=== PATIENT | female | born 1960 | race Caucasian/White ===

== ENCOUNTER 2018-08-20 16:18 | Emergency (ER) | payer BC, OTHER, SELFPAY ==
[2018-08-20 16:19] VITALS: BP 184/82; PULSE 84; RESP 14; TEMP 36.8; O2SAT 97; BMI 46.7
[2018-08-20 16:29] VITALS: BP 177/83; PULSE 85; RESP 12; O2SAT 96
[2018-08-20 16:31] LABS: Bedside Glucose 103 mg/dL (70-110)
--- NOTE | 2018-08-20 16:42 | CT_ITS ---
STUDY: CT BRAIN WITHOUT CONTRAST REASON FOR EXAM: Female, 57 years old. Double vision RADIATION DOSAGE (If Supplied By Facility): CTDIvol = ( 44.99 ) mGy, DLP = ( 812.98 ) mGycm TECHNIQUE: Transaxial CT imaging of the brain was performed without administration of intravenous contrast material. Individualized dose optimization techniques were used for this CT. COMPARISON: No relevant priors. FINDINGS: Normal soft tissue structures. Normal calvarium. Normal size ventricles and extra-axial spaces for the patient's age. Minor periventricular white matter ischemic changes. Normal basal ganglia and thalami. Normal brainstem. Normal cerebellum. There is no intracranial hemorrhage. There are no findings of an acute ischemic infarction. Normal visualized paranasal sinuses. CT/Brain/Head without Contrast IMPRESSION: Minor periventricular white matter ischemic changes. No acute bleed. If concern for acute infarct MRI recommended Electronically Signed: Dwight Evans MD at 17:31 EDT , Service support ,
--- NOTE | 2018-08-20 16:43 | EKG12_ITS ---
Test Reason : NEURO S/SX Blood Pressure : / mmHG Vent. Rate : 078 BPM Atrial Rate : 078 BPM P-R Int : 140 ms QRS Dur : 074 ms QT Int : 366 ms P-R-T Axes : 069 069 052 degrees QTc Int : 417 ms Normal sinus rhythm Nonspecific T wave abnormality Abnormal ECG Confirmed by JARETT LORD, SABIHA ([id number]), editorial writer MALINA KNUTSON ([id number]) on 08/22/2018 11:36:50 AM Referred By: GEEN Confirmed By:SABIHA DENSON MD
--- NOTE | 2018-08-20 16:44 | ED.VIS.GEN ---
History of Present Illness Chief Complaint: Vision Prob Detail of Chief Complaint: Intermittent double vision Informant: Patient Onset: Today Current Severity: - - Gone Maximum Severity: Moderate Narrative: Patient reports waking up at 630 this morning and noting double vision which she described as [id number]. Symptoms lasted approximately 2 or 3 minutes and then resolved. Throughout the day patient has had 3 other episodes of similar symptoms, lasting only a few seconds at a time. Patient was seen by Dr. Briseno with ophthalmology. He sent the patient to the ER for TIA evaluation noting that her eye exam was normal. Patient does have elevated blood pressure today which is not normal for her. She denies headache. She states she has had some mild pain around her right eye for the past 5 days which she attributed to eye strain from working on a computer. She does state that she had a PE a couple years ago after being on control pills. She is no longer on anticoagulants. She states that a couple years ago she also woke up one morning with numbness to the entire left side of her body. There was no weakness associated. She went to a chiropractor. She states she continues to have some intermittent numbness to her left hand and thumb area, but the remainder of her symptoms completely resolved. - Past Medical History (1) Pulmonary embolism Status: Acute Past Medical History - Allergies and Home Meds Allergies/Adverse Reactions: Allergies No Known Allergies Allergy (Verified 08/20/18 16:19) Primary Care Physician: Padmaja Siddiqi DO [STAFF PHYSICIAN] - Prior records reviewed: Yes Past Medical History: - - Reviewed Lives: Spouse/ Significant Other Smoking Status: Never smoker Review of Systems General: Denies: Chills, Fever Eyes: Reports: Diplopia ENT: Denies: Bilateral ear pain, Left ear pain Cardiovascular: Denies: Chest pain, Palpitations, Heart racing Respiratory: Denies: Dyspnea, Cough Gastrointestinal: Denies: Abdominal pain, Nausea, Vomiting Musculoskeletal: Denies: Myalgias Neurological: Denies: Headache, Weakness, Parasthesia Physical Exam Vital Signs/Narrative: Vital Signs Temp Pulse Resp BP Pulse Ox 08/20/18 16:29 85 12 177/83 H 96 08/20/18 16:19 98.3 F 84 14 184/82 H 97 Inital Vital Signs reviewed: Yes General: Well nourished, Well developed Eyes: EOMI, - - Eyes currently dilated secondary to her recent eye exam. ENT: Moist mucous membranes Cardiovascular: Regular rate, Regular rhythm Respiratory: No distress, CTA bilaterally Abdomen: Soft, Nontender Skin: Normal color Neurological: Alert, Oriented x3, - - NIH equals 0 Diagnostic/Tx/Re-eval Impressions Brain CT 08/20/18 16:42 IMPRESSION: Minor periventricular white matter ischemic changes. No acute bleed. If concern for acute infarct MRI recommended Electronically Signed: Dwight Evans MD at 17:31 EDT , Service support , Head/Neck CTA 08/20/18 18:13 IMPRESSION: Mild atherosclerotic disease. No hemodynamically significant stenosis or occlusive thrombus Electronically Signed: Dwight Evans MD at 19:15 EDT , Service support , 08/20/18 16:42 Brain/Head without Contrast [CT] Stat 08/20/18 18:13 CTA Head AND Neck W/ Contrast [CT] Stat Laboratory Results 08/20/18 08/20/18 08/20/18 16:26 17:00 17:00 WBC 6.2 RBC 4.90 Hgb 14.6 Hct 43.4 MCV 88.6 MCH 29.8 MCHC 33.6 RDW 13.5 RDW Differential 43.6 Plt Count 264 MPV 10.4 Immature Gran % (Auto) 0.300 Neut % (Auto) 55.4 Lymph % (Auto) 33.4 [place] % (Auto) 8.3 Eos % (Auto) 2.1 Baso % (Auto) 0.5 Absolute Neuts (auto) 3.4 Absolute Lymphs (auto) 2.06 Total Counted Not Reportable Sodium 139 Potassium 4.4 Chloride 106 Carbon Dioxide 26.0 Anion Gap 7 BUN 14 Creatinine 0.80 Estim Creat Clear Calc 67.00 Est GFR (MDRD) Af Amer 94 Est GFR (MDRD) Non-Af 78 BUN/Creatinine Ratio 17.4 Glucose 101 Calcium 8.9 Troponin I < 0.015 POC Glucose 103 - EKG Initial EKG Interpretation: Sinus Rhythm, - - Normal sinus rhythm at 78 bpm with no acute ST change. Nonspecific T wave flattening is noted. - Medical Decision Making Patient presents with intermittent double vision. CT head and CTA head and neck are unremarkable. Patient refused admission to get MRI. I spoke with Dr. Garcia, on-call for the patient's primary care physician. They will try to arrange close follow-up for the patient. She was instructed to return for any worsening symptoms or concerns. ED Disposition - Plan for ED Patient: Disposition: Home or Assisted Living Diagnosis: Double vision Instructions: Diploplia Referrals: Dwight Guevara MD [Primary Care Provider] - As soon as possible
[2018-08-20] MEDS: 0.9% Normal Saline 1,000 ML 15 ML IV (16:56)
[2018-08-20 17:19] LABS: Absolute Lymphocyte Count 2.06 X10^3/ul (0.83-4.51); Absolute Neutrophil Count 3.4 X10^3/uL (2.0-7.7); Basophil# 0.03 X10^3/uL; Basophil% 0.5 % (0-1); Eosinophil# 0.13 X10^3/uL; Eosinophils% 2.1 % (0-5); Hematocrit 43.4 % (37-47); Hemoglobin 14.6 g/dl (12.0-15.0); Lymphocyte # 2.06 X10^3/ul (4.0); Lymphocyte % 33.4 % (19-41); Mean Corp Hgb Conc 33.6 g/gl (32-36); Mean Corpuscular Hgb 29.8 pg (27.0-32.0); Mean Corpuscular Volume 88.6 fL (81-99); Mean Platelet Vol. 10.4 fl (6.2-12.0); Monocyte# 0.51 X10^3/uL; Monocyte% 8.3 % (0-10); Neutrophil # 3.41 X10^3/uL (2.7-7.7); Neutrophil % 55.4 % (47-70); Platelet Count 264 K/mm3 (150-450); RBC Distribution Width CV 13.5 % (11.6-14.6); RBC Distribution Width SD 43.6 fl (35.1-43.9); White Blood Count 6.2 K/mm3 (4.4-11.0)
[2018-08-20 17:32] LABS: POSITIVE COUNT NO; POSITIVE DIFFERENTIAL NO; POSITIVE MORPHOLOGY NO
[2018-08-20 17:44] LABS: Anion Gap 7 (5-15); BUN 14 mg/dL (7-18); BUN/Creat Ratio 17.4 RATIO (10-20); Calcium,Total 8.9 mg/dL (8.5-10.1); Chloride 106 mmol/L (98-107); EST Glomerular Filtration Rate 78 mL/min (>60); Est Glom Filt Rate - Afr Amer 94 mL/min (>60); Glucose 101 mg/dL (74-106); Potassium 4.4 mmol/L (3.5-5.1); Sodium Level 139 mmol/L (136-145)
[2018-08-20 17:52] VITALS: BP 152/75; PULSE 70; RESP 16; O2SAT 96
--- NOTE | 2018-08-20 18:13 | CT_ITS ---
STUDY: CTA HEAD AND NECK WITH CONTRAST REASON FOR EXAM: Female, 57 years old. Intermittent double vision RADIATION DOSAGE (If Supplied By Facility): CTDIvol = ( 13.09 ) mGy, DLP = ( 722.36 ) mGycm TECHNIQUE: CT angiography was performed with a multi-detector CT scanner. Data acquisition was obtained from the skull base through the vertex following intravenous administration of 100 IV Isovue 370. MIP images were reconstructed from the axial data set. Post-processing of the angiographic images was performed, with multiplanar reformation and 3D reconstruction. Individualized dose optimization techniques were used for this CT. COMPARISON: No relevant priors. FINDINGS: Normal bilateral petrous carotid arteries. Normal right cavernous carotid artery with a normal supraclinoid bifurcation. Minor calcific plaquing of the left cavernous carotid artery with a normal supraclinoid bifurcation. Normal right A1 segments of the anterior cerebral artery. Normal left A1 segments of the anterior cerebral artery. Normal intact anterior communicating artery (ACOM). Normal bilateral A2 segments of the anterior cerebral arteries. Normal right M1 and M2 segments of the middle cerebral arteries, with a normal M1 bifurcation. Normal left M1 and M2 segments of the middle cerebral arteries, with a normal M1 bifurcation. Normal right posterior communicating artery (PCOM). Normal left posterior communicating artery (PCOM). Normal right vertebral. Mildly narrowed distal left vertebral Normal basilar artery with a normal basilar bifurcation. The visualized bilateral superior cerebellar (SCA) arteries are normal. Normal bilateral P1, P2 and visualized P3 segments of the posterior cerebral arteries. There is no demonstrated aneurysm of the [facility] [place]. There is no demonstrated abnormality of the visualized brain. AORTIC ARCH: Normal visualized aortic arch. Normal origins of the brachiocephalic, left common carotid, and left subclavian arteries. RIGHT CAROTID ARTERIES: Normal right common carotid artery (CCA). Normal right common carotid bulb. Normal origin of the right internal carotid (ICA) artery without a hemodynamically significant stenosis. Normal visualized cervical portion of the right internal carotid artery. Normal origin of the right external carotid artery (ECA). LEFT CAROTID ARTERIES: Normal left common carotid artery (CCA). Minor calcific plaquing of the left common carotid bulb. Normal origin of the left internal carotid (ICA) artery without a hemodynamically significant stenosis. Normal visualized cervical portion of the left internal carotid artery. Normal origin of the left external carotid artery (ECA). VERTEBRAL ARTERIES: Normal right vertebral. Mildly narrowed distal left vertebral CT/CTA Head AND Neck W/ Contrast IMPRESSION: Mild atherosclerotic disease. No hemodynamically significant stenosis or occlusive thrombus Electronically Signed: Dwight Evans MD at 19:15 EDT , Service support ,
[2018-08-20 19:21] VITALS: BP 150/79; PULSE 71; RESP 16; O2SAT 96
[2018-08-20 20:41] VITALS: BP 146/78; PULSE 71; RESP 18; O2SAT 98
== END 2018-08-20 20:43 | disposition home or self-care (01) ==
PROVIDERS: Emergency Provider Emergency Medicine; Family Provider Family Medicine; PCP Family Medicine
DX: H53.2 Diplopia (principal); R20.0 Anesthesia of skin; Z86.711 Personal history of pulmonary embolism
CPT/HCPCS: 70450; 70496; 70498; 80048; 82962; 84484; 85025; 93005; 96360; 96361; 99285; J7030; Q9967; A4216

== ENCOUNTER 2020-01-09 15:00 | Outpatient (RCR) | payer BC, SELFPAY ==
--- NOTE | 2019-10-29 11:35 | HP.PTEVAL ---
Patient's Visit Information KAELA QUINTANA is a 59 year old F referred to Physical Therapy by TERRANCE PHELPS with a diagnosis of ANKLE FRACTURE. Date of Evaluation: 10/28/19 Physical Therapist: Branden Alexis, PT, Cert MDT, OCS - Visit Plan Frequency: 2x /Week Duration: 10weeks Plan: S/P ORIF LEFT ANKLE SEPTEMBER 05 NWB LLE WITH BOOT,USES KNEELING WALKER. STAYS IN BED/RECLINER,NON-AMBULATORY. PATIENT IS WBAT WITH BOOT LLE AND OKAY TO REMOVE ROM. 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 PT INTERVENTIONS ROM ANKLE ,FLEXABLITY CALF,STRENGTHENING HIP/KNEE ,VASO FOR EDEMA,START GAIT TRAINING ll BARS - Subjective This 59 y/o female presents to physical therapy with closed bimlleolar ankle fracture. Patient fractured ankle slipped on step on September 03 ER at [place] did Reduction then d/c to home with fww. Patient then seen September [address] Phelps at [facility] at [place] .Patient underwent s/p ORIF on September 05 Patient in splint for 2weeks ,September place in cast but had to remove due to swelling and placed in Boot September 30 .Patient ws NWB LLE kneeling walker made. Patient has kneeling walker downstairs and fww. Patient has elaveted toilet seat and bed side commode.Recently seen DR rhina Krue[place] and gonzalo for WBAT with boot and remove boot for ROM. Home is split level 2 steps entrance and 2 nd floor 7 steps. C/O parathesia foot .Patient removed boot when sleeping or resting. Patient tub seat over hang but spouse helps with ADL' and bathing. Spouse does all cooking and cleaning.Patient stays in bed or recliner. Patient condtion affects inablity to walk,unable to do ADL'S and job demnads. Patient condition affects QOL.Patient seen Oct 21 did X-RAYS showed healing but not total.Patient is not ambulating at home. SOCIAL: . 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 SKIN: crusty inscion ,scapy. PALPATION very tender too touch planater metetarsels. EDEMA: 25 cm metetarsels,trimaelaor joint line 64>3 cm2. AROM: dorsiflexion 40 degrees from 0 ,planterflexion 60 degrees,inversion 5 degrees ,eversion 0 degrees. MMT: ankle dorsiflexion 2+/5,platerflexion 2/5,eversion/inversion 2+/5 left ankle. GAIT: stood walker walker took one hop x1 in ll bars with mod assist wit PWB LLE with boot has difficulty with WB. TRANSFERS: sit-stand with mod assist ,pivot transfer poor technique with min assist - Goals Goal 1:: Patient to be I with HEP Goal Time Frame: 8-12 Weeks Goal 2:: Patient be I with all transfers Goal Time Frame: 4-6 Weeks Goal 3:: Patient to ambulate with least restrictive device with improve gait pattern with good - balance. Goal Time Frame: 8-12 Weeks Goal 4:: Patient incsrease dorsiflexion by 10 degrees,and 5 degrees inversion/eversion /planterflexion or > to improve gait. Goal Time Frame: 8-12 Weeks Goal 5:: Patient to increase strength left ankle stabilizers 4-/5 and G-S by 3+/5 to improve gait Goal Time Frame: 8-12 Weeks Goal 6:: Patient to improve LFES score by 10 points or > to improve function. Goal Time Frame: 8-12 Weeks - Rehabilitation Potential Physical Therapy Diagnosis: This patient s/p ORIF left ankle with pain ,edema ankle /foot,poor ROM ,tight calf,decrease,inability gait ,decrease transfers and balance impairs ADL's and function thus benifit from skilled PT. Rehabilitation Potential: Fair - Anticipated Interventions Patient/Client Instruction: Educate patient on: Condition For the Purpose of:: To decrease pain, To decrease swelling/inflammation, To increase ROM, To improve nutrient delivery to tissue, To increase oxygenation perfusion, To increase tolerance to activity/condition/position, To improve performance and independence with ADL's, To improve ability of physical actions for home/community/work/leisure, To improve gait and locomotor functions, To improve health of tissue, To decrease soft tissue restriction, To increase flexibility/ROM, To improve endurance, To improve safety with gait, To assume or resume ADL's Therapeutic Exercise to Include: Strength training, Endurance training, Balance training, Flexibilty training, Gait and locomotor training, Passive ROM, Active ROM Comment: STRENGTHENIG HIP/KNEE,ROM ANKLE PROGRESS STRENGTHENING PER MD For the Purpose of:: To decrease pain, To increase ROM, To improve nutrient delivery to tissue, To increase oxygenation perfusion, To improve muscle performance and motor function, To improve ability to perform ADL's, To increase tolerance to activity/condition/position, To improve performance and independence with ADL's, To improve ability of physical actions for home/community/work/leisure, To improve gait and locomotor functions, To improve health of tissue, To decrease soft tissue restriction, To increase flexibility/ROM, To improve balance, To improve safety with gait, To assume or resume ADL's, To improve ability to perform tasks related to life management TENS: Yes IF ES: Yes Cryotherapy (ice pack, ice massage): Yes Vasopneumatic device: Yes For the Purpose of:: To decrease pain, To decrease swelling/inflammation, To increase ROM, To improve nutrient delivery to tissue, To increase oxygenation perfusion, To decrease soft tissue restriction, To increase flexibility/ROM Thank you for the opportunity to evaluate your patient. For Medicare and Medicare HMO plans, please review the plan of care and approve it. It will need to be FAXED BACK to us at [phone] for Medicare purposes. For Medicare only, by signing this I certify the plan of care. Please let me know if there are questions or concerns regarding this plan of care. Physician Signature: Date:
--- NOTE | 2020-01-09 15:58 | HP.PTDCSUM ---
It has been my pleasure to treat KAELA QUINTANA referred by TERRANCE PHELPS, with the diagnosis of ANKLE FRACTURE for a total of 20 visit(s). Discharge Date: 01/09/20 Please see the following information for a summary of their discharge status. Subjective: [place] pretty good after last visit I fell asleep for a coouple fo hours. Left Ankle Pain Intensity (Out of 10): 0 R ankle Pain Intensity (Out of 10): 0 R SH Pain Intensity (Out of 10): 0 % Improvement: 80 Objective/Function: inv /barbara/ df. L . R . MMT L inv 19 barbara 20. R inv 20 barbara 25. girth about 1 difference L vs R 12 vs 11 figure 8 23 vs 22. Goal 1:: Patient to be I with HEP Goal Progress: Goal Met Goal 2:: Patient be I with all transfers Goal 3:: Patient to ambulate with least restrictive device with improve gait pattern with good - balance. Goal Progress: Progressing Goal 4:: Patient incsrease dorsiflexion by 10 degrees,and 5 degrees inversion/eversion /planterflexion or > to improve gait. Goal Progress: Goal Met Goal 5:: Patient to increase strength left ankle stabilizers 4-/5 and G-S by 3+/5 to improve gait Goal Progress: Progressing Goal 6:: Patient to improve LFES score by 10 points or > to improve function. Plan: discharge to [facility]. Foloowup with Dr Phelps would like to continue to follow Dr Phelps as he changes offices Discharge Comments: Asked patient to foloow up with Dr Phelps. Issues here a discount for a wellness membership. She appears [place] but maybe switching jobs. If there are questions or concerns regarding this patient's physical therapy, please feel free to call me at [phone]. Thank you for the referral of this patient. Sincerely, Abundio Doe, PT, PAULINO, SCS, CSCS
== END 2020-01-09 19:00 | disposition home or self-care (01) ==
LOC: PT 15:00
PROVIDERS: PCP Family Medicine
DX: S82.899D Other fracture of unspecified lower leg, subsequent encounter for closed fracture with routine healing (principal); M25.571 Pain in right ankle and joints of right foot
CPT/HCPCS: 97016; 97035; 97110; 97140; 97162; 97164

== ENCOUNTER → 2020-07-09 15:26 | Outpatient (CLI) | payer OTHER, BC, SELFPAY ==
[2020-07-19 03:06] LABS: Lyme IgG P18 Ab Absent (.); Lyme IgG P23 Ab Absent (.); Lyme IgG P28 Ab Absent (.); Lyme IgG P30 Ab Absent (.); Lyme IgG P39 Ab Absent (.); Lyme IgG P41 Ab Present (.); Lyme IgG P45 Ab Absent (.); Lyme IgG P58 Ab Present (.); Lyme IgG P66 Ab Absent (.); Lyme IgG P93 Ab Absent (.); Lyme IgM P23 Ab Present (.); Lyme IgM P39 Ab Present (.); Lyme IgM P41 Ab Absent (.)
[2020-07-19 07:58] LABS: Lyme IgG WB Interpretation Negative (.); Lyme IgM WB Interpretation Positive (.)
== END ==
PROVIDERS: PCP Family Medicine; Visit Provider Otolaryngology
DX: G51.0 Bell's palsy (principal)
CPT/HCPCS: 36415; 86617

== ENCOUNTER → 2020-07-21 15:27 | Outpatient (CLI) | payer OTHER, SELFPAY ==
--- NOTE | 2020-07-21 16:00 | MRI_ITS ---
STUDY: MRI BRAIN WITH AND WITHOUT CONTRAST (ATTENTION INTERNAL AUDITORY CANALS - I.A.C.''s) REASON FOR EXAM: Female, 59 years old. right facial paralysis, RIGHT hearing loss TECHNIQUE: Standardized multiplanar fat and water weighted pulse sequences were obtained. 25ML IV DOTAREM was administered for the contrast portion of the examination. COMPARISON: None. FINDINGS: Normal bilateral temporal bones. Normal bilateral internal auditory canals. There is no demonstrated intracanalicular or cisternal vestibular schwannoma (acoustic neuroma). There is enhancement of the distal cisternal segment, genu and mastoid segments of the right facial nerve which may be seen with Tracey''s palsy.. Normal bilateral cochlea, vestibules and semicircular canals. Normal size of the ventricles and extra-axial spaces for the patient''s age. Minor periventricular white matter ischemic changes without mass effect or restricted diffusion.. Normal bilateral basal ganglia. Normal thalami. Normal flow voids within the major intracranial circulation suggesting patency by spin echo criteria. Normal venous enhancement. There is no enhancing intra-axial or extra-axial abnormality. There is no extra-axial fluid accumulation. Normal sella turcica, pituitary gland, infundibular stalk, optic chiasm and hypothalamus. Normal tectal plate and pineal gland. Normal midbrain, chiqui and medulla. Normal cerebellum. Normal basal cisterns. No demonstrated orbital abnormality, within the constraints of a routine brain study. Normal visualized paranasal sinuses. Normal calvarium and skull base. Normal visualized soft tissue structures. Normal visualized upper cervical spine. 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
== END ==
PROVIDERS: PCP Family Medicine; Referring Provider Otolaryngology; Visit Provider Otolaryngology
DX: G51.0 Bell's palsy (principal); H90.41 Sensorineural hearing loss, unilateral, right ear, with unrestricted hearing on the contralateral side
CPT/HCPCS: 70553; A9575

== ENCOUNTER 2021-03-31 09:25 | Outpatient (CLI) | payer OTHER, SELFPAY ==
--- NOTE | 2021-03-31 09:35 | US_ITS ---
STUDY: ULTRASOUND BREAST - LEFT REASON FOR EXAM: Female, 60 years old. Palpable lump left breast. Abnormal screening mammogram. TECHNIQUE: Axial and longitudinal images of the LEFT breast were performed with a high resolution ultrasound transducer. # OF IMAGES: 32 COMPARISON: None. FINDINGS: LEFT Breast: There is a 3.9 cm x 3.3 cm x 2.3 cm irregular hypoechoic solid mass with increased vascularity at the 2 o''clock position of the breast at 3 cm to 4 cm from the nipple. There is also evidence of posterior acoustical shadowing. There is also evidence of a 7 mm x 7 mm x 6 mm hypoechoic irregular nodule with posterior acoustical shadowing at the 2 o''clock position the breast at 3 cm from nipple. Biopsies of both lesions recommended. US/Breast Limited Unilateral IMPRESSION: At the 2 o''clock position of the breast, there are 2 suspicious lesions. Biopsy recommended. The larger lesion measures 3.9 cm x 3.3 cm by 2.3 cm. ASSESSMENT CATEGORY: BIRADS Category 5: Highly Suggestive of Malignancy - Appropriate Action Should Be Taken. A letter regarding these results will be sent to the patient by the facility within 30 days. Electronically Signed: Zac Lagunas MD at 11:21 EST ,
--- NOTE | 2021-03-31 09:35 | BI_ITS ---
MAMMOGRAPHY - BILATERAL DIAGNOSTIC REASON FOR EXAM: Female, 60 years old. Two-month history of left breast lump. Left nipple inversion. PERTINENT HISTORY: Mother with breast cancer. Grandmother with breast cancer. TECHNIQUE: Digital bilateral breast hugo (3D mammographic acquisition) in the CC and MLO projections. 2-D mediolateral oblique (MLO) and craniocaudad (CC) views of both breasts were obtained. CAD: Full Field Digital Mammography with Computer Added Detection was performed. COMPARISON: None. Baseline examination. FINDINGS: Breast Composition: There are scattered areas of fibroglandular density. There is a 2.7 cm x 3 cm spiculated mass in the upper outer quadrant of the left breast with the nipple retraction and overlying skin retraction with thickening. Correlation with ultrasound is recommended. This corresponds to the palpable abnormality. Right axillary lymph nodes. No other significant abnormalities are identified. BI/DIAG MAMM W/CAD, BILAT IMPRESSION: The palpable abnormality corresponds to a 2.7 sided by 3 cm spiculated mass in the upper-outer quadrant left breast with evidence of nipple inversion and skin dimpling. Enlarged right axillary lymph node. Correlation with ultrasound and biopsy recommended. ASSESSMENT CATEGORY: BIRADS Category 0: Incomplete. Need additional imaging evaluation. A letter regarding these results will be sent to the patient by the facility within 30 days. Approximately 10% of breast cancers are not detected by mammography. A normal mammogram should not delay biopsy of a clinically suspicious abnormality. Electronically Signed: Zac Lagunas MD at 10:41 EST ,
== END 2021-03-31 23:59 | disposition home or self-care (01) ==
LOC: OPBI 09:30
PROVIDERS: PCP Family Medicine; Visit Provider Clinical Nurse Specialist
DX: N63.20 Unspecified lump in the left breast, unspecified quadrant (principal)
CPT/HCPCS: 76642; 77062; 77066; G0279

== ENCOUNTER 2021-05-06 12:40 | Outpatient (CLI) | payer OTHER, SELFPAY ==
--- NOTE | 2021-05-06 13:00 | MRI_ITS ---
STUDY: BILATERAL BREAST MR WITHOUT AND WITH CONTRAST REASON FOR EXAM: Female, 60 years old. Left breast cancer. Mother with breast cancer. Grandmother with breast cancer. TECHNIQUE: Multi-sequence multi-echo imaging of both breasts was performed with a dedicated breast coil. T1-weighted and T2-weighted images were performed before the administration of contrast. T1-weighted images were also performed after the intravenous administration of 19ml of Dotarem contrast. COMPARISON: Bilateral mammograms dated 03/31/2021 and left breast ultrasound dated 03/31/2021. FINDINGS: RIGHT BREAST: The breast tissue is scattered fibroglandular densities with minimal background enhancement. There are no abnormal enhancing masses or areas of non-mass enhancement in the right breast. LEFT BREAST: The breast tissue is scattered fibroglandular densities with minimal background enhancement. Multiple irregular sites of enhancement in the left breast. The largest area corresponds to the mammogram and is predominantly within the upper outer quadrant of the breast 8.5 cm behind the nipple and 2.3 cm above the nipple. This area of irregular enhancement measures approximately 3.9 cm x 3.3 cm x 3.7 cm and corresponds to the largest mass on the mammogram. A smaller area of irregular enhancement is located anterior and superior to the large mass and measures 1.6 cm x 8 mm x 9 mm. A third area of enhancement is anterior and medial to the large mass is located approximately 4.6 cm behind the nipple and 3.3 cm above the nipple measuring 12 mm x 7 mm 5 mm. A fourth enhancing irregular mass is located just above the nipple and measures 11 mm x 7 mm x 1.6 cm is identified. All of these lesions are highly suspicious for multifocal tumor involvement. The largest mass extends to the superior aspect of the lower outer quadrant of the breast, likely making these lesions multicentric involvement. Multiple enlarged lymph nodes in the left axilla highly suspicious for tumor involvement, the largest of which measures approximately 13 mm in widest diameter. There is no abnormality in the visualized regions of the chest or liver. MRI/Breast Bilateral W/O and W IMPRESSION: 4 separate sites of irregular contrast enhancement compatible with multifocal and likely multicentric tumor involvement within the left breast. The largest mass in the upper outer quadrant and extends to the superior aspect of the left lower quadrant as noted. Multiple enlarged left axillary lymph nodes highly suspicious for tumor involvement. CATEGORY: BIRADS Category 6: Known Biopsy-Proven Malignancy - Appropriate Action Should Be Taken. A letter regarding these results will be sent to the patient by the facility within 30 days. Electronically Signed: Itz Winkler MD at 9:29 EDT ,
[2021-05-06 13:11] LABS: CREATININE FINGERSTICK 0.6 mg/dL (0.55-1.02); EGFR FINGERSTICK > 60.0000 mL/min (>60)
== END 2021-05-06 23:59 | disposition home or self-care (01) ==
LOC: MRI 12:42
PROVIDERS: PCP Internal Medicine; Referring Provider Internal Medicine Hematology & Oncology; Visit Provider Internal Medicine Hematology & Oncology
DX: C50.512 Malignant neoplasm of lower-outer quadrant of left female breast (principal); R92.2 Inconclusive mammogram
CPT/HCPCS: 77049; A9575; A4216; C8908